=== PATIENT | female | born 1950 | race Caucasian/White ===

== ENCOUNTER → 2017-08-17 | Outpatient (CLI) | payer MEDICARE ==
--- NOTE | 2017-08-18 11:21 | MM ---
Reason for exam: screening (asymptomatic). Last mammogram was performed 1 year ago. History: Patient is postmenopausal. Benign stereotactic core biopsy of the left breast, May 14, 1999. Physical Findings: A clinical breast exam by your physician is recommended on an annual basis and results should be correlated with mammographic findings. MG Screening Mammo w CAD Bilateral CC and MLO view(s) were taken. Prior study comparison: August 11, 2016, bilateral MG screening mammo w CAD. August 10, 2015, bilateral MG screening mammo w CAD. The breast tissue is heterogeneously dense. This may lower the sensitivity of mammography. There is no discrete abnormality. No significant changes when compared with prior studies. ASSESSMENT: Benign, BI-RAD 2 RECOMMENDATION: Routine screening mammogram of both breasts in 1 year.
== END | disposition home or self-care (01) ==
LOC: RADMAMWWP 13:26
PROVIDERS: ATTEND Obstetrics & Gynecology
DX: Z12.31 Encounter for screening mammogram for malignant neoplasm of breast (principal)
CPT/HCPCS: 77067

== ENCOUNTER → 2018-08-29 | Outpatient (CLI) | payer MEDICARE ==
--- NOTE | 2018-09-01 11:54 | MM ---
Reason for exam: screening (asymptomatic). Last mammogram was performed 1 year ago. History: Patient is postmenopausal. Benign stereotactic core biopsy of the left breast, May 14, 1999. MG Screening Mammo w CAD Bilateral CC and MLO view(s) were taken. Prior study comparison: August 17, 2017, bilateral MG screening mammo w CAD. August 11, 2016, bilateral MG screening mammo w CAD. The breast tissue is heterogeneously dense. This may lower the sensitivity of mammography. There are benign-appearing right breast calcifications. Left breast biopsy marker is noted. No suspicious abnormality. No significant changes when compared with prior studies. ASSESSMENT: Benign, BI-RAD 2 RECOMMENDATION: Routine screening mammogram of both breasts in 1 year.
== END | disposition home or self-care (01) ==
LOC: RADMAMWWP 09:48
PROVIDERS: ATTEND Obstetrics & Gynecology
DX: Z12.31 Encounter for screening mammogram for malignant neoplasm of breast (principal)
CPT/HCPCS: 77067

== ENCOUNTER → 2019-10-29 | Outpatient (CLI) | payer MEDICARE ==
--- NOTE | 2019-10-29 11:59 | MM ---
Reason for exam: screening (asymptomatic). Last mammogram was performed 1 year and 2 months ago. History: Patient is postmenopausal. Benign stereotactic core biopsy of the left breast, May 14, 1999. Physical Findings: A clinical breast exam by your physician is recommended on an annual basis and results should be correlated with mammographic findings. MG Screening Mammo w CAD Bilateral CC and MLO view(s) were taken. Prior study comparison: August 29, 2018, bilateral MG screening mammo w CAD. August 17, 2017, bilateral MG screening mammo w CAD. The breast tissue is heterogeneously dense. This may lower the sensitivity of mammography. Previous mammotome biopsy in the left. There is chronic nodularity bilaterally. Asymmetric breast tissue left breast, stable. There is no discrete abnormality. ASSESSMENT: Benign, BI-RAD 2 RECOMMENDATION: Routine screening mammogram of both breasts in 1 year.
== END | disposition home or self-care (01) ==
LOC: RADMAMWWP 10:03
PROVIDERS: ATTEND Obstetrics & Gynecology
DX: Z12.31 Encounter for screening mammogram for malignant neoplasm of breast (principal)
CPT/HCPCS: 77067

== ENCOUNTER → 2020-06-05 | Outpatient (CLI) | payer MEDICARE ==
--- NOTE | 2020-06-05 15:56 | US ---
EXAMINATION TYPE: US thyroid st tissue head/neck DATE OF EXAM: 06/05/2020 COMPARISON: None available CLINICAL HISTORY: 69-year-old female E04.2 MULTINODULAR GOITER. Patient states having previous ultras ounds once a year at a different facility- This is the first one here. Right thyroidectomy 2009. GLAND SIZE: Left Lobe: 4.9 x 1.9 x 1.7 cm. Overall Parenchyma: heterogeneous NODULES RIGHT lobe surgically absent LEFT: # of nodules measured on left: 4. Multiple nodules visualized. Largest 4 measured. 1. 1.0 X 0.7 x 0.6 cm hypoechoic nodule at the mid pole with well-defined margins. This nodule is wider than tall and shows intranodular vascularity. Prior size: No previous here 2. 0.7 X 0.6 x 0.4 cm mixed nodule at the lower pole with well-defined margins. This nodule is wide r than tall and shows intranodular vascularity. Prior size: No previous here 3. 1.1 X 0.9 x 0.7 cm isoechoic nodule at the lower pole with well-defined margins. This nodule is wider than tall and shows intranodular vascularity. Prior size: No previous here 4. 0.6 X 0.4 x 0.3 cm hypoechoic nodule at the mid pole with well-defined margins. This nodule is w ider than tall and shows no intranodular vascularity. Prior size: No previous here ISTHMUS surgically absent Bilateral neck scanned. Nonenlarged lymph node visualized = 1.3 x 0.4 x 0.4 cm IMPRESSION: Status post right thyroidectomy. There are 4 nodules on the left, largest measuring 1.1 cm and the ne xt largest measuring 1.0 cm. Patient's outside priors are not available for comparison. Ongoing follo w-up as clinically indicated.
== END | disposition home or self-care (01) ==
LOC: RADUSWWP 14:53
PROVIDERS: ATTEND Internal Medicine Endocrinology, Diabetes & Metabolism
DX: E04.2 Nontoxic multinodular goiter (principal); E89.0 Postprocedural hypothyroidism
CPT/HCPCS: 76536; 84439; 84443

== ENCOUNTER → 2020-11-30 | Outpatient (CLI) | payer MEDICARE ==
--- NOTE | 2020-12-02 09:18 | MM ---
Reason for exam: screening (asymptomatic). Last mammogram was performed 1 year and 1 month ago. History: Patient is postmenopausal. Benign stereotactic core biopsy of the left breast, May 14, 1999. Physical Findings: A clinical breast exam by your physician is recommended on an annual basis and results should be correlated with mammographic findings. MG 3D Screening Mammo W/Cad Bilateral CC and MLO view(s) were taken. XCCL view(s) were taken of the left breast. Prior study comparison: October 29, 2019, bilateral MG screening mammo w CAD. August 29, 2018, bilateral MG screening mammo w CAD. There are scattered fibroglandular densities. Previous mammotome biopsy in the left breast. There is chronic nodularity in the left breast. Global asymmetry right posterior upper outer quadrant. No significant changes when compared with prior studies. ASSESSMENT: Benign, BI-RAD 2 RECOMMENDATION: Routine screening mammogram of both breasts in 1 year.
== END | disposition home or self-care (01) ==
LOC: RADMAMWWP 14:33
PROVIDERS: ATTEND Obstetrics & Gynecology
DX: Z12.31 Encounter for screening mammogram for malignant neoplasm of breast (principal); Z78.0 Asymptomatic menopausal state
CPT/HCPCS: 77063; 77067

== ENCOUNTER → 2021-06-03 | Outpatient (CLI) | payer MEDICARE ==
[2021-06-03 15:59] LABS: T4, Free (Free Thyroxine) 1.2 ng/dL (0.78-2.19)
--- NOTE | 2021-06-03 16:32 | US ---
EXAMINATION TYPE: US thyroid st tissue head/neck DATE OF EXAM: 06/03/2021 COMPARISON: 06/05/2020 CLINICAL HISTORY: 70-year-old female E04.2 NONTOXIC MNG. TECHNIQUE: Multiple sonographic images of the thyroid gland are obtained. GLAND SIZE: Right Lobe: Surgically absent. Left Lobe: 4.7 x 1.7 x 1.9 cm. Overall Parenchyma: Heterogeneous. Isthmus Thickness: 3.9 mm NODULES RIGHT: # of nodules measured on right: partial thyroidectomy with no residual tissue seen at this t macario. LEFT: # of nodules measured on left: multiple, measured 2 largest 1. 0.9 X 0.9 x 0.5 cm, lower, hypoechoic TR 4 nodule, which is wider than tall, with smooth margins , without echogenic foci. Prior size: 0.9 x 0.7 x 0.5 cm 2. 1.2 X 0.8 x 0.6 cm, mid, solid or almost completely solid, isoechoic TR3 nodule, which is wider than tall, with smooth margins, without echogenic foci. Prior size: 1.1 x 0.9 x 0.7 cm Scattered numerous small colloid cysts are present. ISTHMUS: # of nodules measured in the isthmus: 0 Bilateral neck scanned, no evidence of lymphadenopathy. IMPRESSION: 1. Status post right thyroidectomy. 2. Two dominant solid nodules on the left, the smaller is a 9 mm TR4 nodule and the larger is a 1.2 c m TR3 nodule. Both are unchanged from 06/05/2020. 3. Additional numerous small subcentimeter colloid cysts on the left.
== END | disposition home or self-care (01) ==
LOC: RADUSWWP 14:54
PROVIDERS: ATTEND Internal Medicine Endocrinology, Diabetes & Metabolism
DX: E04.2 Nontoxic multinodular goiter (principal); E89.0 Postprocedural hypothyroidism
CPT/HCPCS: 76536; 84439; 84443

== ENCOUNTER → 2021-12-03 | Outpatient (CLI) | payer MEDICARE ==
--- NOTE | 2021-12-06 11:20 | MM ---
Reason for exam: screening (asymptomatic). Last mammogram was performed 1 year ago. History: Patient is postmenopausal. Benign stereotactic core biopsy of the left breast, May 14, 1999. Physical Findings: A clinical breast exam by your physician is recommended on an annual basis and results should be correlated with mammographic findings. MG 3D Screening Mammo W/Cad Bilateral CC and MLO view(s) were taken. Prior study comparison: November 30, 2020, bilateral MG 3d screening mammo w/cad. October 29, 2019, bilateral MG screening mammo w CAD. There are scattered fibroglandular densities. There is chronic nodularity in the left breast. No significant changes when compared with prior studies. ASSESSMENT: Benign, BI-RAD 2 RECOMMENDATION: Routine screening mammogram of both breasts in 1 year.
== END | disposition home or self-care (01) ==
LOC: RADMAMWWP 12:35
PROVIDERS: ATTEND Obstetrics & Gynecology
DX: Z12.31 Encounter for screening mammogram for malignant neoplasm of breast (principal); Z78.0 Asymptomatic menopausal state
CPT/HCPCS: 77063; 77067

== ENCOUNTER → 2022-05-16 | Outpatient (CLI) | payer MEDICARE ==
--- NOTE | 2022-05-16 09:52 | US ---
EXAMINATION TYPE: US thyroid st tissue head/neck DATE OF EXAM: 05/16/2022 COMPARISON: US CLINICAL HISTORY: E04.2 THYROID NODULE. F/U left thyroid nodules, right thyroidectomy GLAND SIZE: Right Lobe: Surgically absent Left Lobe: 5.1 x 2.1 x 1.8 cm Overall Parenchyma: heterogeneous Isthmus Thickness: 0.3 cm NODULES LEFT: # of nodules measured on left: 2 1. 0.9 X 0.6 x 0.9 cm, mid, Prior size: 0.9 x 0.5 x 0.9 cm TIRADS Score: 4 TIRADS Category 4: Moderately Suspicious Composition: Solid or almost completely solid (2 points). Echogenicity: Hypoechoic (2 points). Shape: Wider than tall (0 points). Margin: Smooth (0 points). Echogenic foci: None or large comet-tail artifacts (0 points) Recommendation: If >1.5cm: FNA; If >1cm: Follow up at 1,3,5 years 2. 1.4 X 0.8 x 0.8 cm, lower, Prior size: 1.2 x 0.8 x 0.6 cm TIRADS Score: 3 TIRADS Category 3: Mildly Suspicious Composition: Solid or almost completely solid (2 points). Echogenicity: Hyperechoic or isoechoic (1 point). Shape: Wider than tall (0 points). Margin: Smooth (0 points). Echogenic foci: None or large comet-tail artifacts (0 points) Recommendation: If >2.5cm: FNA; If >1.5cm: Follow up at 1,3,5 years ISTHMUS: # of nodules measured in the isthmus: 0 Bilateral neck scanned, no evidence of lymphadenopathy. Multiple nodules within left thyroid, largest 2 measured similar to prior exam. IMPRESSION: Left thyroid nodules which are stable or slightly smaller. Consider follow-up imaging in one year.
[2022-05-16 16:07] LABS: T4, Free (Free Thyroxine) 1.05 ng/dL (0.800-1.800)
== END | disposition home or self-care (01) ==
LOC: RADUSWWP 08:23
PROVIDERS: ATTEND Internal Medicine Endocrinology, Diabetes & Metabolism
DX: E04.2 Nontoxic multinodular goiter (principal)
CPT/HCPCS: 76536; 84439; 84443

== ENCOUNTER → 2022-12-05 | Outpatient (CLI) | payer MEDICARE ==
--- NOTE | 2022-12-06 08:13 | MM ---
Reason for Exam: Screening (asymptomatic). Last screening mammogram was performed 12 month(s) ago. Patient History: Menarche at age 10. First Full-Term at age 22. Postmenopausal. 05/14/1999, Benign Stereotactic Core Biopsy on the left side. Risk Values: Lora 5 year model risk: 1.9%. NCI Lifetime model risk: 4.3%. Prior Study Comparison: 10/29/2019 Bilateral Screening Mammogram, [facility]. 11/30/2020 Bilateral Screening Mammogram, [facility]. 12/03/2021 Bilateral Screening Mammogram, [facility]. Tissue Density: The breast tissue is heterogeneously dense. This may lower the sensitivity of mammography. Findings: Analyzed By CAD. There is no suspicious group of microcalcifications or new suspicious mass in either breast. Chronic nodularity persists. Overall Assessment: Benign, BI-RAD 2 Management: Screening Mammogram of both breasts in 1 year. A clinical breast exam by your physician is recommended on an annual basis and results should be correlated with mammographic findings. Electronically signed and approved by: Rosalino Underwood M.D. Radiologis
== END | disposition home or self-care (01) ==
LOC: RADMAMWWP 11:01
PROVIDERS: ATTEND Obstetrics & Gynecology
DX: Z12.31 Encounter for screening mammogram for malignant neoplasm of breast (principal); Z78.0 Asymptomatic menopausal state
CPT/HCPCS: 77063; 77067

== ENCOUNTER → 2023-12-07 | Outpatient (CLI) | payer MEDICARE ==
--- NOTE | 2023-12-11 08:35 | MM ---
Reason for Exam: Screening (asymptomatic). Last screening mammogram was performed 12 month(s) ago. Patient History: Menarche at age 10. First Full-Term at age 22. Postmenopausal. 05/14/1999, Benign Stereotactic Core Biopsy on the left side. Risk Values: Lora 5 year model risk: 1.9%. NCI Lifetime model risk: 4.0%. Prior Study Comparison: 11/30/2020 Bilateral Screening Mammogram, [facility]. 12/03/2021 Bilateral Screening Mammogram, [facility]. 12/05/2022 Bilateral MG 3D screening mammo w/cad, [facility]. Tissue Density: There are scattered areas of fibroglandular density. Findings: Analyzed By CAD. Left breast biopsy clip. Right breast: There is no suspicious group of microcalcifications or new suspicious mass. Left breast: There is no suspicious group of microcalcifications or new suspicious mass. Overall Assessment: Benign, BI-RAD 2 Management: Screening Mammogram of both breasts in [address] [facility] will attempt to contact patient to return for supplemental views and ultrasound if indicated. Patient should continue monthly self-breast exams. A clinical breast exam by your physician is recommended on an annual basis. This exam should not preclude additional follow-up of suspicious palpable abnormalities. Note on Lora scores and lifetime risk: 1. A Lora score greater than 3% is considered moderate risk. If this is the case, consider specialist referral to assess eligibility for a risk reducing agent. 2. If overall lifetime risk for the development of breast cancer is 20% or higher, the patient may qualify for future screening with alternating mammogram and breast MRI. Electronically signed and approved by: Cliff Hanson DO
== END | disposition home or self-care (01) ==
LOC: RADMAMWWP 12:37
PROVIDERS: ATTEND Family Medicine
DX: Z12.31 Encounter for screening mammogram for malignant neoplasm of breast (principal); Z78.0 Asymptomatic menopausal state
CPT/HCPCS: 77063; 77067

== ENCOUNTER → 2024-12-09 | Outpatient (CLI) | payer MEDICARE ==
--- NOTE | 2024-12-09 15:39 | MM ---
Reason for Exam: Screening (asymptomatic). Last screening mammogram was performed 12 month(s) ago. Patient History: Menarche at age 10. First Full-Term at age 22. Postmenopausal. 05/14/1999, Benign Stereotactic Core Biopsy on the left side. Risk Values: Lora 5 year model risk: 1.9%. NCI Lifetime model risk: 3.8%. Prior Study Comparison: 12/03/2021 Bilateral Screening Mammogram, [facility]. 12/05/2022 Bilateral MG 3D screening mammo w/cad, [facility]. 12/07/2023 Bilateral MG 3D screening mammo w/cad, [facility]. Tissue Density: There are scattered areas of fibroglandular density. Findings: Analyzed By CAD. Benign biopsy clip in the left breast is redemonstrated. There are a few stable small benign-appearing round masses bilaterally redemonstrated. Stable dominant 8 mm mass middle depth left breast. No new or enlarging masses bilaterally. Stable benign-appearing left axillary lymph node. Overall Assessment: Benign, BI-RAD 2 Management: Screening Mammogram of both breasts in 1 year. . Patient should continue monthly self-breast exams. A clinical breast exam by your physician is recommended on an annual basis. This exam should not preclude additional follow-up of suspicious palpable abnormalities. Note on Lora scores and lifetime risk: 1. A Lora score greater than 3% is considered moderate risk. If this is the case, consider specialist referral to assess eligibility for a risk reducing agent. 2. If overall lifetime risk for the development of breast cancer is 20% or higher, the patient may qualify for future screening with alternating mammogram and breast MRI. [facility], , 12/09/2024 3:35 PM. Electronically signed and approved by: Jaswant Moulton M.D.
== END | disposition home or self-care (01) ==
LOC: RADMAMWWP 14:55
PROVIDERS: ATTEND Family Medicine
DX: Z12.31 Encounter for screening mammogram for malignant neoplasm of breast (principal); R92.323 Mammographic fibroglandular density, bilateral breasts; Z78.0 Asymptomatic menopausal state
CPT/HCPCS: 77063; 77067